=== PATIENT | male | born 1985 | race Caucasian/White ===

== ENCOUNTER 2021-01-21 08:55 | Day surgery (SDC) | payer MEDICAID ==
[~2021-01-21] VITALS: Ht 165.1 cm; Wt 102.1 kg
[2021-01-21] MEDS ORDERED: ONDANSETRON HCL 4 MG/2 ML VIAL IVP PRN (12:30)
[2021-01-21] MEDS ORDERED: METOCLOPRAMIDE HCL 10 MG/2 ML VIAL IVP PRN (12:30)
[2021-01-21] MEDS ORDERED: fentaNYL CITRATE/PF 100 MCG/2 ML AMP IVP PRN ×2 (12:30)
[2021-01-21] MEDS ORDERED: EPINEPHrine 1 MG/ML VIAL ONE (13:25)
[2021-01-21] MEDS ORDERED: WATER FOR IRRIGATION,STERILE 1,000 ML IRRIG.SOLN IR ONE (13:25)
[2021-01-21] MEDS ORDERED: PROPOFOL 200MG/ 20ML VIAL (DIPRIVAN) IV ONE (13:25)
[2021-01-21] MEDS ORDERED: DEXAMETHASONE SOD PHOSPHATE 4 MG/ML VIAL ONE (13:25)
[2021-01-21] MEDS ORDERED: ROCURONIUM BROMIDE 10 MG/ML (ZEMURON) ONE (13:25)
[2021-01-21] MEDS ORDERED: ONDANSETRON HCL 4 MG/2 ML VIAL ONE (13:25)
[2021-01-21] MEDS ORDERED: NS 1000 ML IV.SOLN IV ONE (13:25)
[2021-01-21] MEDS ORDERED: MIDAZOLAM HCL 5 MG/ML VIAL (VERSED) IV ONE (13:25)
[2021-01-21] MEDS ORDERED: fentaNYL CITRATE/PF 100 MCG/2 ML AMP ONE (13:25)
[2021-01-21] MEDS ORDERED: LIDOCAINE/EPI 1% 1:100000 20 ML VIAL INJ ONE (13:25)
[2021-01-21] MEDS ORDERED: LR 1,000 ML IV.SOLN IV ONE (13:25)
[2021-01-21] MEDS ORDERED: SEVOFLURANE 15 MIN GAS INH ONE (13:25)
[2021-01-21] MEDS ORDERED: NS IRRIG SOLN 1000 ML IR ONE (13:25)
[2021-01-21] MEDS ORDERED: hydrALAZINE HCL 20 MG/ML VIAL IVP ONE (14:00)
[2021-01-21] MEDS ORDERED: hydrALAZINE HCL 20 MG/ML VIAL ONE (14:05)
[2021-01-21 17:48] VITALS: BP_SYST 147
== END 2021-01-21 16:35 | disposition home or self-care (01) ==
LOC: SDS 08:55 → SMU 08:56 → SDS 16:35
PROVIDERS: ATTEND Otolaryngology
DX: J34.89 Other specified disorders of nose and nasal sinuses (principal); D38.5 Neoplasm of uncertain behavior of other respiratory organs; J34.2 Deviated nasal septum; J30.1 Allergic rhinitis due to pollen; G47.33 Obstructive sleep apnea (adult) (pediatric); E66.3 Overweight; Z99.89 Dependence on other enabling machines and devices; Z79.899 Other long term (current) drug therapy; Z20.822 Contact with and (suspected) exposure to COVID-19; Z68.37 Body mass index [BMI] 37.0-37.9, adult
CPT/HCPCS: 88304; 88311; J0171; J0360; J1100; J2250; J2405; J2704; J3010; J7030; J7120; U0003